=== PATIENT | female | born 1995 | race Hispanic/Latino ===

== ENCOUNTER 2018-02-24 18:06 | Emergency (ER) | payer OTHER ==
[~2018-02-24] VITALS: Ht 162.6 cm; Wt 46.8 kg
--- NOTE | 2018-02-24 18:32 | ED GI/GU/ABDOMINAL COMPLAINT ---
History of Present Illness General Chief Complaint: Abdominal Pain/Flank Pain Stated Complaint: ABD PAIN Source: patient Exam Limitations: no limitations Vital Signs & Intake/Output Vital Signs & Intake/Output Vital Signs Date Time Temp Pulse Resp B/P B/P Pulse O2 O2 Flow FiO2 Mean Ox Delivery Rate 02/24 2025 98.9 80 18 117/58 100 02/24 1915 Room Air 02/24 1814 98.1 75 18 115/76 97 Room Air Allergies Coded Allergies: NO KNOWN ALLERGIES (02/24/18) Reconcile Medications Ciprofloxacin HCl (Cipro) 500 MG TABLET 1 TAB PO BID uti/pyelo Triage Note: PT COMPLAINS OF PAIN TO R FLANK, R ABD AND PAIN WITH URINATION WITH BLOOD NOTED IN HER URINE, AFEBRILE AT THIS TIME. PT HAS HISTORY OF KIDNEY STONES Triage Nurses Notes Reviewed? yes ? n Is pt currently ? Yes Onset: Abrupt Duration: day(s):, constant Timing: recent history Location: right flank HPI: 22-year-old female comes into the emergency room with complaints of right flank pain wrapping around to her abdomen. Some associated dysuria and increased frequency with urination. Some associated nausea but denies any vomiting. Denies any fever. Denies any prior abdominal surgeries. Nothing seems to make the symptoms better or worse. She comes in for further evaluation. (Alexandru Payton) Past History Travel History Traveled to [place] past 21 day No Medical History Any Pertinent Medical History? 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 No (Alexandru Payton) Review of Systems Review of Systems Constitutional: Reports: no symptoms. EENTM: Reports: no symptoms. Respiratory: Reports: no symptoms. Cardiovascular: Reports: no symptoms. GI: Reports: see HPI. Genitourinary: Reports: see HPI. Musculoskeletal: Reports: no symptoms. Skin: Reports: no symptoms. Neurological/Psychological: Reports: no symptoms. Hematologic/Endocrine: Reports: no symptoms. Immunologic/Allergic: Reports: no symptoms. All Other Systems: Reviewed and Negative (Alexandru Payton) Physical Exam Physical Exam General Appearance: well developed/nourished, no apparent distress, alert, awake Head: atraumatic, normal appearance Eyes: Bilateral: normal appearance. Ears, Nose, Throat, Mouth: hearing grossly normal, moist mucous membrane Neck: normal inspection Respiratory: no respiratory distress Gastrointestinal: soft, tenderness right upper abdomen, negative McBurney's point, no guarding tenderness Back: normal inspection Extremities: normal range of motion Neurologic/Psych: awake, alert, oriented x 3 Skin: intact, normal color Core Measures ACS in differential dx? No Sepsis Present: No Sepsis Focused Exam Completed? No (Alexandru Payton) Progress Differential Diagnosis: appendicitis, cholecystitis, kidney stone, ovarian cyst, UTI/pyelo Plan of Care: Orders Procedure Date/time Status URINE 02/24 1815 Complete URINALYSIS 02/24 1815 Complete COMPREHENSIVE METABOLIC PANEL 02/24 1815 Complete CBC WITHOUT DIFFERENTIAL 02/24 1815 Complete Laboratory Tests 02/24/18 182: Anion Gap 6, Estimated GFR > 60, BUN/Creatinine Ratio 21.7, Glucose 73, Calcium 9.7, Total Bilirubin 0.2, AST 18, ALT 28, Alkaline Phosphatase 35, Total Protein 6.8, Albumin 4.4, Globulin 2.4, Albumin/Globulin Ratio 1.8, CBC w Diff NO MAN DIFF REQ, RBC 4.13 L, MCV 92.3, MCH 31.1 H, MCHC 33.7, RDW 12.9, MPV 8.2, Gran % 75.9 H, Lymphocytes % 14.7 L, Monocytes % 7.8, Eosinophils % 1.5, Basophils % 0.1, Absolute Granulocytes 8.3 H, Absolute Lymphocytes 1.6, Absolute Monocytes 0.9 H, Absolute Eosinophils 0.2, Absolute Basophils 0 02/24/181817: Urinalysis MOD H, Urine Color YEL, Urine Clarity CLDY H, Urine pH 6.0, Ur Specific [place] >= 1.030, Urine Protein 100 H, Urine Ketones NEG, Urine Nitrite POS H, Urine Bilirubin NEG, Urine Urobilinogen 0.2, Ur Leukocyte Esterase MOD H, Ur Microscopic SEDIMENT EXAMINED, Urine RBC 10-15 H, Urine WBC 50-75 H, Ur Epithelial Cells MOD H, Urine Bacteria MOD H, Urine Mucus FEW, Urine Hemoglobin LARGE H, Urine Glucose NEG, Urine Test NEGATIVE Diagnostic Imaging: Viewed by Me: Ultrasound. Discussed w/RAD: Ultrasound. Initial ED EKG: none Comments: 02/24/2018 10:09:28 PM Symptoms are more consistent with pyelonephritis/UTI. Low suspicion for appendicitis. Patient will be treated symptomatically with oral antibiotics. Return if any concerns worsening symptoms. She clinically looks well. She is no apparent distress. (Alexandru Payton) Departure Departure Disposition: HOME OR SELF CARE Condition: Stable Clinical Impression Primary Impression: Pyelonephritis Referrals: Patient Has No Primary Care Dr (PCP/Family) Additional Instructions: Take ciprofloxacin as prescribed. Rest. Drink plenty fluids. Return if any concerns worsening symptoms. Please go over all results of today's visit with your primary care doctor. Contact your primary care doctor to let them know you were here in the emergency room. There may be nonspecific findings which may not be related to your visit today here in the emergency room but may require further evaluation and chronic monitoring by your primary care doctor. If you had a laceration today the chance of foreign body always remains. You should follow-up with your primary care doctor for recheck in 3-5 days for a wound check. If you had an x-ray done there is a chance that a fracture could have been missed on initial read and you should follow-up with your primary care doctor for repeat x-rays if symptoms persist. If your blood pressure was elevated here in the emergency room please have rechecked by [facility] primary care doctor within the next 48. If you were prescribed a narcotic here in the emergency room or any type of controlled substances you're not allowed to drive while taking this medication or operate any type of heavy machinery. Narcotics can make you feel lightheaded dizziness nausea and can cause constipation. You may need to roller picker a stool softener. Thank you for choosing [facility] emergency room. Please return to the emergency room immediately if you have any other concerns worsening of symptoms. Departure Forms: Customer Survey General Discharge Information Prescriptions: Current Visit Scripts Ciprofloxacin HCl (Cipro) 1 TAB PO BID #14 TAB (Alexandru Payton) PA/HR OPERATIONS ADVISOR Co-Sign Statement Statement: ED Attending supervision documentation- I saw and evaluated the patient. I have also reviewed all the pertinent lab results and diagnostic results. I agree with the findings and the plan of care as documented in the PA's/HR OPERATIONS ADVISOR's documentation. x I have reviewed the ED Record and agree with the PA's/HR OPERATIONS ADVISOR's documentation. [] Additions or exceptions (if any) to the PAs/HR OPERATIONS ADVISOR's note and plan are summarized below: [] (Baldev SANDERS,Surya)
[2018-02-24 19:00] LABS: ABSOLUTE BASOPHIL COUNT 0 /CUMM (0.0-0.2); ABSOLUTE EOSINOPHIL COUNT 0.2 /CUMM (0.0-0.7); ABSOLUTE GRANULOCYTE CT 8.3 /CUMM (1.4-6.5); ABSOLUTE LYMPH COUNT 1.6 /CUMM (1.2-3.4); ABSOLUTE MONOCYTE COUNT 0.9 /CUMM (0.10-0.60); BASOPHIL % 0.1 % (0.0-2.0); EOSINOPHIL % 1.5 % (0-5); GRANULOCYTE % 75.9 % (42.2-75.2); HEMATOCRIT 38.1 % (37-47); MEAN CORPUSCULAR HGB 31.1 PG (27.0-31.0); MEAN CORPUSCULAR HGB CONC 33.7 G/DL (33.0-37.0); MEAN CORPUSCULAR VOLUME 92.3 FL (81.0-99.0); MEAN PLATELET VOLUME 8.2 FL (7.4-10.4); PLATELET COUNT 238 /CUMM (130-400); RBC DISTRIBUTION WIDTH 12.9 % (11.5-14.5); RED BLOOD CELL CT 4.13 /CUMM (4.20-5.40)
--- NOTE | 2018-02-24 20:02 | ULTRASOUND REPORT ---
EXAMINATION: US RETROPERITONEAL COMPLETE (RENAL) CLINICAL INFORMATION: Right flank pain and blood in urine. COMPARISON: None TECHNIQUE: Real-time imaging of the kidneys and bladder. FINDINGS: RIGHT KIDNEY: 11.4 x 4.4 x 4.7 cm (SAG x AP x TRV). The kidney is normal in size, contour, and echogenicity. Renal cortical thickness is normal. No focal parenchymal lesions or hydronephrosis. Right midpole calculus measuring 0.9 x 0.3 x 0.6 cm. LEFT KIDNEY: 10.8 x 3.9 x 3.6 cm (SAG x AP x TRV). The kidney is normal in size, contour, and echogenicity. Renal cortical thickness is normal. No calculi or focal parenchymal lesions. No hydronephrosis. BLADDER: Bladder is decompressed. Bilateral ureteral jets are not demonstrated. Prevoid bladder volume is 11 mL. IMPRESSION: Nonobstructing right renal calculus measuring up to 0.9 cm in greatest dimension.
[2018-02-24] MEDS ORDERED: CIPRO500 M1 PO (20:15)
[2018-02-24 20:25] VITALS: BP 117/58
== END 2018-02-24 20:31 ==
LOC: ERH 18:06
PROVIDERS: Physician Assistant Medical
DX: N12 Tubulo-interstitial nephritis, not specified as acute or chronic (principal)
CPT/HCPCS: 76775; 81001; 81025; 96372; J1885